=== PATIENT | male | born 1995 | race American Indian/Alaskan Native ===

== ENCOUNTER 2022-07-20 16:12 | Emergency (ER) | payer OTHER ==
[~2022-07-20] VITALS: Ht 175.3 cm; Wt 62.1 kg
[2022-07-20 16:22] VITALS: BP 134/71
--- NOTE | 2022-07-20 16:40 | NUR ---
KERI AVERY AT PT SIDE FOR EVAL
[2022-07-20] MEDS ORDERED: KETOROLAC 30 MG/ML VIAL IM ONE (16:45)
[2022-07-20] MEDS ORDERED: CAPS1ADH5 TP (17:01)
[2022-07-20] MEDS ORDERED: NAPR-1704 PO (17:01)
--- NOTE | 2022-07-20 17:50 | NUR ---
Patient discharged with v/s stable. Written and verbal after care instructions ABOUT [facility] given and explained. Patient alert, oriented and verbalized understanding of instructions. Ambulatory with steady gait. All questions addressed prior to discharge. ID band removed. Patient advised to follow up with PMD. Rx of NAPROXEN AND SALONPAS GEL-PATCH HOT given. Patient educated on indication of medication including possible reaction and side effects. Opportunity to ask questions provided and answered.
== END 2022-07-20 17:50 | disposition home or self-care (01) ==
LOC: MED 16:12
DX: M54.31 Sciatica, right side (principal); Z79.899 Other long term (current) drug therapy
CPT/HCPCS: 72100; 96372; 99283; J1885